=== PATIENT | female | born 1980 | race Caucasian/White ===

== ENCOUNTER 2019-06-06 14:23 | Emergency (ER) | payer OTHER ==
[~2019-06-06] VITALS: Ht 152.4 cm; Wt 56.2 kg
[2019-06-06 14:40] VITALS: Ht 152.4 cm; Wt 56.2 kg
[2019-06-06 15:12] LABS: BASOPHIL % 0.1 % (0-2); PLATELET COUNT 162 x10^3mcL (130-400); RED CELL DISTRIBUTION WIDTH 15.1 % (11.5-14.5)
[2019-06-06 15:40] LABS: ALBUMIN 3.9 g/dL (3.4-5.0); CARBON DIOXIDE 29.9 mmol/L (21-32); POTASSIUM SERUM 5.1 mmol/L (3.5-5.1); TOTAL PROTEIN, SERUM 8.1 g/dL (6.4-8.2)
[2019-06-06 15:41] LABS: BILIRUBIN TOTAL 0.5 mg/dL (0.20-1.00); CALCIUM 9.8 mg/dL (8.5-10.1)
[2019-06-06 15:46] LABS: CREATININE SERUM 12.9 mg/dL (0.6-1.0)
[2019-06-06 16:11] VITALS: BP 180/99
== END 2019-06-06 16:11 | disposition home or self-care (01) ==
LOC: ED 14:23
PROVIDERS: Emergency Medicine
DX: K52.9 Noninfective gastroenteritis and colitis, unspecified (principal)
CPT/HCPCS: 36415; Q0162